=== PATIENT | male | born 1985 | race Caucasian/White ===

== ENCOUNTER 2019-02-07 18:22 | Emergency (ER) | payer OTHER ==
[~2019-02-07] VITALS: Ht 188 cm; Wt 125.6 kg
[2019-02-07 18:29] VITALS: BP_SYST 135
--- NOTE | 2019-02-07 18:37 | NUR ---
Patient to ER bed 02 for evaluation. Side rails up. Report given to Irene DELONG.
--- NOTE | 2019-02-07 18:40 | NUR ---
pt brought to ED by sister. Pt Alert and Oriented x4. Pt States that he has Chief complaint of L hand pain and cramping. 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 Pt states he has no other medical complaint at this time. Pt denies CP, N/V, Diarrhea, Dizziness, Shortness of breath, blurred vision. Pt resting in ED bed confortably with no acute signs of distress. Will continue to monitor.
--- NOTE | 2019-02-07 18:43 | NUR ---
ER Dr. Mao at bedside examining patient.
--- NOTE | 2019-02-07 19:20 | NUR ---
Patient given written and verbal discharge instructions and verbalizes understanding. ER MD discussed with patient the results and treatment provided. Patient in stable condition. ID arm band removed. Rx of Ibuprofen given. Patient educated on pain management and to follow up with PMD. Pain Scale 0/10 Opportunity for questions provided and answered. Medication side effect fact sheet provided.
== END 2019-02-07 19:20 | disposition home or self-care (01) ==
LOC: SED 18:22
DX: S63.502A Unspecified sprain of left wrist, initial encounter (principal); R03.0 Elevated blood-pressure reading, without diagnosis of hypertension; X58.XXXA Exposure to other specified factors, initial encounter; Y93.89 Activity, other specified; Y92.89 Other specified places as the place of occurrence of the external cause; Y99.8 Other external cause status
CPT/HCPCS: 99283

== ENCOUNTER 2020-01-19 20:10 | Emergency (ER) | payer OTHER ==
[~2020-01-19] VITALS: Ht 185.4 cm; Wt 122.5 kg
[2020-01-19 20:14] VITALS: BP_SYST 147
[2020-01-19] MEDS ORDERED: KETOROLAC TROMETHAMINE 60 MG/2 ML VIAL IM ONE (21:00)
[2020-01-19] MEDS ORDERED: ONDANSETRON 4 MG ODT TAB PO ONE (21:15)
[2020-01-19] MEDS ORDERED: ONDANSETRON HCL 4 MG/2 ML VIAL IVP ONE (21:15)
[2020-01-19 22:38] VITALS: BP_SYST 148
== END 2020-01-19 22:38 | disposition home or self-care (01) ==
LOC: SED 20:10
DX: G43.909 Migraine, unspecified, not intractable, without status migrainosus (principal)
CPT/HCPCS: 96372; 99283; J1885; Q0162